=== PATIENT | female | born 1950 | race Caucasian/White ===

== ENCOUNTER 2019-10-09 05:21 | Inpatient (IN) ==
--- NOTE | 2019-10-02 10:06 | EKG Report ---
Test Performed on : 10/02/2019 10:02:04 AM Test Reason : PAT Blood Pressure : / mmHG Vent. Rate : 064 BPM Atrial Rate : 064 BPM P-R Int : 128 ms QRS Dur : 084 ms QT Int : 396 ms P-R-T Axes : 049 023 070 degrees QTc Int : 408 ms Normal sinus rhythm. Nonspecific ST and T wave abnormality Abnormal ECG When compared with ECG of 31-DEC-2012 08:37, No significant change was found Unconfirmed Result
[2019-10-02 10:54] LABS: URINE SOURCE CLEAN CATCH
[2019-10-02 11:01] LABS: BASO# 0.04 X1000 (0.0-0.2); BASO% 0.5 % (0.0-0.8); EOS# 0.52 X1000 (0.0-0.7); EOS% 7.1 % (0.0-10.0); HEMATOCRIT 39.2 % (37.0-47.0); HEMOGLOBIN 12.6 g/dL (12.0-16.0); IMM GRAN# 0.02 X1000 (0.0-0.04); IMM GRAN% 0.3 % (0.0-0.5); LYMPH# 2.52 X1000 (1.2-3.4); LYMPH% 34.3 % (20.5-51.1); MCHC 32.1 g/dL (33-37); MCV 93.3 FL (81-99); MONO# 0.46 X1000 (0.11-0.59); MONO% 6.3 % (1.7-9.3); MPV 9.3 FL (7.4-10.4); NEUT# 3.78 X1000 (1.4-6.5); NEUT% 51.5 % (42.2-75.2); PLT 268 X1000 (130-400); RDW 12.5 % (11.5-14.5); WBC 7.34 X1000 (4.8-10.8)
[2019-10-02 11:03] LABS: BILIRUBIN URINE NEGATIVE (NEGATIVE); BLOOD URINE NEGATIVE (NEGATIVE); COLOR YELLOW; GLUCOSE URINE NEGATIVE (NEGATIVE); KETONE URINE NEGATIVE (NEGATIVE); LEUKOCYTES URINE SMALL (NEGATIVE); NITRITE URINE NEGATIVE (NEGATIVE); PROTEIN URINE NEGATIVE (NEGATIVE); SP GRAVITY URINE 1.005; TURBIDITY URINE CLEAR (CLEAR); UR EPITHELIAL CELLS <10 /HPF (<10); URINE BACTERIA NEGATIVE /HPF; URINE RBC <10 /HPF (<10); URINE WBC <10 /HPF (<10); UROBILINOGEN URINE NORMAL (NORMAL)
[2019-10-02 11:13] LABS: HEMOGLOBIN A1C 5.6 % (4.8-6.0)
[2019-10-02 11:19] LABS: INR 1.06; PROTIME 13.9 Seconds (11.0-16.0)
[2019-10-02 11:20] LABS: PTT 26.3 Seconds (22.3-41.8)
[2019-10-02 11:28] LABS: AGAP 9; BUN 7 mg/dL (8-22); CALCIUM 9.1 mg/dL (8.8-10.2); CHLORIDE 103 mmol/L (98-107); COSMO 283; CREATININE 0.8 mg/dL (0.5-0.9); ESTIMATED GFR > 60; GLUCOSE 93 mg/dL (70-104); POTASSIUM 4.5 mmol/L (3.5-5.1); SODIUM 143 mmol/L (136-145); TCO2 31 mmol/L (25-35)
[2019-10-09] MEDS ORDERED: DURAMORPH ONE (06:22)
[2019-10-09] MEDS ORDERED: MARCAINE 0.25% PF ONE (06:22)
[2019-10-09] MEDS ORDERED: TORADOL ONE (06:22)
[2019-10-09] MEDS ORDERED: CYKLOKAPRON 1,000 MG/NS 1,000 MG/100 ML IVPB ONE (06:23)
[2019-10-09] MEDS ORDERED: COLACE ONE (06:23)
[2019-10-09] MEDS ORDERED: EXPAREL 1.3% ONE (06:23)
[2019-10-09] MEDS ORDERED: PEPCID ONE (06:23)
[2019-10-09] MEDS ORDERED: REGLAN ONE (06:23)
[2019-10-09] MEDS ORDERED: SODIUM CHLORIDE 0.9% ONE (06:23)
[2019-10-09] MEDS ORDERED: LYRICA ONE (06:24)
[2019-10-09] MEDS ORDERED: KEFZOL 1 GM/D5W 2 GM/100 ML IVPB ONE (06:24)
[2019-10-09] MEDS ORDERED: LR 1,000 ML ONE (06:24)
[2019-10-09] MEDS ORDERED: CELEBREX ONE (06:24)
[2019-10-09] MEDS ORDERED: FENTANYL ONE (06:56)
[2019-10-09] MEDS ORDERED: QUELICIN (DOSE) ONE (06:57)
[2019-10-09] MEDS ORDERED: DIPRIVAN 1% 500 MG/50 ML BOTTLE ONE (06:59)
[2019-10-09 08:06] LABS: URINE SOURCE CATH
[2019-10-09] MEDS ORDERED: OFIRMEV 1000 MG/ISOTONIC SOLN 1,000 MG/100 ML BOTTLE ONE (08:08)
[2019-10-09] MEDS ORDERED: EPHEDRINE ONE (08:24)
[2019-10-09 08:30] LABS: BILIRUBIN URINE NEGATIVE (NEGATIVE); BLOOD URINE NEGATIVE (NEGATIVE); COLOR YELLOW; GLUCOSE URINE NEGATIVE (NEGATIVE); KETONE URINE NEGATIVE (NEGATIVE); LEUKOCYTES URINE NEGATIVE (NEGATIVE); NITRITE URINE NEGATIVE (NEGATIVE); PROTEIN URINE NEGATIVE (NEGATIVE); SP GRAVITY URINE 1.012; TURBIDITY URINE CLEAR (CLEAR); UROBILINOGEN URINE NORMAL (NORMAL)
[2019-10-09 08:31] LABS: UR EPITHELIAL CELLS <10 /HPF (<10); URINE BACTERIA NEGATIVE /HPF; URINE RBC <10 /HPF (<10); URINE WBC <10 /HPF (<10)
[2019-10-09] MEDS ORDERED: NS 1,000 ML ONE (09:09)
--- NOTE | 2019-10-09 09:43 | OPERATIVE NOTE ---
PROCEDURE DATE: 10/09/2019 PREOPERATIVE DIAGNOSIS: Degenerative joint disease, left hip. POSTOPERATIVE DIAGNOSIS: Degenerative joint disease, left hip. PROCEDURE PERFORMED: Left anterior hip replacement. SURGEON: Luis Vargas MD. GASOLINE ENGINE ASSEMBLER: JUDAH Joseph. Mr. Cohen was necessary for proper retraction and manipulation of the leg during the case. ANESTHESIA: Spinal. COMPLICATIONS: None. PROCEDURE IN DETAIL: This 69-year-old female presents for a left anterior hip replacement. Risks, benefits, and no guarantees were discussed, and she is willing to proceed. She was taken to the operating room and satisfactory anesthesia obtained. She was placed on the [place] table, and the left hip prepped and draped in the usual sterile fashion. A time-out was taken to confirm operative site, procedure, and patient. The left hip was approached anteriorly with a 10 cm incision starting 1 cm distal and lateral to the anterior-superior iliac spine. This was carried down over the tensor fascia andreia. The fascia of the tensor was split in line with the incision and blunt dissection along the inner membrane of tensor undertaken down the anterior hip capsule. Cobra retractor was placed over the superior and inferior aspect of the femoral neck. A capsulotomy incision was made to expose the joint. At this point, the C-arm was used to make an AP pelvis for leg length determination after the osteotomy. An osteotomy was made roughly 8 mm above the lesser trochanter and the femoral head removed. A small Cobra retractor was carefully placed directly on the anterior acetabular bone to protect the anterior neurovascular bundle. Sequential reaming up to a 49 reamer was undertaken. A DePuy [place] 50 outer diameter DuoFix ORTIZ coated cup was impacted in the acetabulum with secure press-fit fixation under fluoroscopic guidance in roughly 45 degrees of abduction and 15 to 20 degrees of anteversion. This had initial press-lock fixation. A 25 length screw was placed in the 12 o'clock position in the cup for additional security. A 32 mm inner diameter, 0 degree polyethylene bearing was impacted into the cup. The bearing-cup interface and cup-bone interface were checked and noted to be stable. Traction was released off the leg, and the hip extended and externally rotated to facilitate broaching of the proximal femur. Sequential broaching of the proximal femur was undertaken with the RECEPTA biopharmauy Curiyois broach up to a size 1 stem. This had good axial and rotational stability. The standard neck geometry with a +5 head, neck length revealed good range of motion and advent of leg length as well stability. The trial stem was removed and an Actis standard neck size 1 collared stem impacted in the proximal femur with secure axial and rotational stability. A 32 mm head with a +5 neck taper was then placed onto this and impacted into place. The hip was then reduced and the C-arm used to verify accurate placement of the components and advent of leg lengths. Stability was assessed by flexing the hip and internally rotating it without any posterior instability. Anterior stability was assessed by extending the hip to the floor and externally rotating it up to 75 degrees without any anterior instability. The wound was copiously irrigated with irrigant. A Hemovac drain was placed. The joint capsule and subcutaneous were injected with Exparel for pain management. The fascia of the tensor was closed with a running V- Loc suture, the subcutaneous with 2-0 Vicryl, and the skin with skin mary alice. Sterile dressings completed the closure. The patient was recovered from anesthesia and transferred to the recovery room in stable condition. No intraoperative complications were noted. Instrument count and sponge count were correct at the time of closure. cc: Raffy Vargas MD
[2019-10-09] MEDS ORDERED: MORPHINE IV PRN ×3 (11:00)
[2019-10-09] MEDS ORDERED: ZOFRAN ODT PO PRN (11:00)
[2019-10-09] MEDS ORDERED: OXY IR PO PRN (11:00)
[2019-10-09] MEDS ORDERED: CYKLOKAPRON 1,000 MG in NS 100 ML IV ONE ×2 (11:00→13:30)
[2019-10-09] MEDS ORDERED: ZOFRAN IV PRN (11:00)
[2019-10-09] MEDS: PERIDEX MT SCH ×2 (13:14→21:10)
[2019-10-09] MEDS: NS 1,000 ML IV SCH ×2 (13:15→21:17)
[2019-10-09] MEDS ORDERED: ZOFRAN ONE (14:30)
[2019-10-09] MEDS ORDERED: DECADRON ONE (14:30)
[2019-10-09] MEDS: KEFZOL 2 GM/D5W 2 GM/50 ML IVPB IV SCH ×2 (15:43→23:45)
[2019-10-09] MEDS: ULTRAM PO SCH ×2 (15:43→21:12)
[2019-10-09] MEDS: TYLENOL PO SCH ×2 (15:45→21:12)
[2019-10-09] MEDS: OXY IR PO PRN ×2 (17:48→23:45)
--- NOTE | 2019-10-09 20:06 | ORTHOPAEDICS PROGRESS NOTE ---
DATE: 10/09/2019 Ms. Grant is seen status post hip replacement. At the present time, she is afebrile with stable vital signs. Her bandage is clean and dry. She is able to extend and bend the knee actively as well as the ankle. There are no motor or sensory deficits. Compartments are soft with no active bleeding and good capillary refill. We will plan on mobilizing her and discharging her home when she is up with therapy independently. She is stable at the present time. cc: Raffy Vargas MD
[2019-10-09] MEDS ORDERED: ZOCOR PO SCH (21:00)
[2019-10-09] MEDS ORDERED: VITAMIN D PO SCH (21:00)
[2019-10-09] MEDS ORDERED: ROBAXIN PO SCH (21:00)
[2019-10-09] MEDS ORDERED: VALIUM PO SCH (21:00)
[2019-10-09] MEDS ORDERED: CULTURELLE PO SCH (21:00)
[2019-10-09] MEDS ORDERED: NON-FORMULARY MED (Celecoxib [Celebrex] 200 MG) PO SCH (21:00)
[2019-10-09] MEDS: COLACE PO SCH (21:11)
[2019-10-09] MEDS: CELEBREX PO SCH (21:11)
[2019-10-10] MEDS: NS 1,000 ML IV SCH (02:35)
[2019-10-10] MEDS: OXY IR PO PRN (06:10)
[2019-10-10] MEDS: ULTRAM PO SCH ×2 (06:18→09:49)
[2019-10-10] MEDS: TYLENOL PO SCH ×2 (06:18→09:50)
[2019-10-10 06:36] LABS: HEMATOCRIT 28.4 % (37.0-47.0)
[2019-10-10 06:58] LABS: AGAP 8; BUN 15 mg/dL (8-22); CALCIUM 8.5 mg/dL (8.8-10.2); CHLORIDE 104 mmol/L (98-107); COSMO 278; CREATININE 0.8 mg/dL (0.5-0.9); ESTIMATED GFR > 60; GLUCOSE 131 mg/dL (70-104); POTASSIUM 4.3 mmol/L (3.5-5.1); SODIUM 138 mmol/L (136-145); TCO2 26 mmol/L (25-35)
[2019-10-10 08:19] VITALS: BP 117/50
[2019-10-10] MEDS ORDERED: PEPCID PO SCH (09:00)
[2019-10-10] MEDS ORDERED: ASPIRIN PO SCH (09:00)
[2019-10-10] MEDS: CELEBREX PO SCH (09:49)
[2019-10-10] MEDS: COLACE PO SCH (09:50)
[2019-10-10] MEDS: PERIDEX MT SCH (09:50)
--- NOTE | 2019-10-10 10:39 | ORTHOPAEDICS PROGRESS NOTE ---
DATE: 10/10/2019 Ms. Grant was seen status post hip replacement. At the present time, she is afebrile with stable vital signs. Her bandages are all clean and dry. She is already mobilizing with physical therapy. She can be discharged home for home health. We will see her back in roughly 12 days for a wound check. She is to continue her home medicines, as well as use aspirin 325 a day for DVT prophylaxis, Bactrim for wound prophylaxis, and [place] as needed for pain. She is to return in the interim for any worsening signs or symptoms. cc: Raffy Vargas MD
== END 2019-10-10 13:46 | disposition home or self-care (01) | DRG 470 ==
LOC: SURHOLD 05:21 → 4N 07:30
PROVIDERS: ADMIT Orthopaedic Surgery Adult Reconstructive Orthopaedic Surgery; ATTEND Orthopaedic Surgery Adult Reconstructive Orthopaedic Surgery